=== PATIENT | female | born 1995 | race African-American/Black ===

== ENCOUNTER 2024-09-02 17:20 | Emergency (ER) | payer BC ==
[~2024-09-02] VITALS: Ht 172.7 cm; Wt 66.2 kg
[2024-09-02 17:50] LABS: *BILIRUBIN,URIN NEGATIVE (NEGATIVE); *BLOOD, URINE NEGATIVE (NEGATIVE); *CLARITY,URINE CLEAR (CLEAR); *KETONES,URINE 1+ (NEGATIVE); *PROTEIN,URINE NEGATIVE (NEGATIVE); *UROBILINOGEN,URINE 0.2 E.U./dl (NORMAL); LEUKOCYTE ESTERASE ,URINE NEGATIVE (NEGATIVE); NITRITE, URINE NEGATIVE (NEGATIVE); UGLUCOSE NEGATIVE (NEGATIVE)
[2024-09-02] MEDS ORDERED: CEFTRIAXONE /D5W 50ML IVPB **ER PYXIS IV ONE (17:53)
[2024-09-02 17:54] LABS: *COLOR,URINE LIGHT YELLOW (YELLOW); *URINE HCG, QUAL NEGATIVE (NEGATIVE)
[2024-09-02 18:05] LABS: RBC,URINE NONE SEEN /HPF (0-3)
[2024-09-02 18:06] LABS: BACTERIA,URINE NONE SEEN /HPF (NONE SEEN); SQUAMOUS EPITHELIAL CELL,UR FEW /HPF (NONE SEEN); WBC,URINE 0-3 /HPF (0-3)
[2024-09-02 18:11] LABS: BASOPHILS % (AUTO) 0.1 % (0.0-2.0); EOSINOPHILS % (AUTO) 0.1 % (0.0-7.0); HEMATOCRIT 36.2 % (31.2-41.9); HEMOGLOBIN 11.6 g/dL (10.9-14.3); LYMPHOCYTES # (AUTO) 0.7 K/uL (0.8-4.8); LYMPHOCYTES % (AUTO) 4.2 % (20.5-51.5); MEAN CORPUSCULAR HEMOGLOBIN 25.5 uug (24.7-32.8); MEAN CORPUSCULAR HGB CONC 32 g/dL (32.3-35.6); MEAN CORPUSCULAR VOLUME 79.5 fL (75.5-95.3); MONOCYTES # (AUTO) 0.4 K/uL (0.1-1.30); MONOCYTES % (AUTO) 2.6 % (0.0-11.0); NEUTROPHILS # (AUTO) 15.9 K/uL (1.8-8.9); PLATELET COUNT (AUTO) 258 K/uL (179-408); RED BLOOD CELL COUNT(AUTO) 4.55 MIL/uL (3.63-4.92); RED CELL DISTRIBUTION WIDTH 16.2 % (12.3-17.7); WHITE BLOOD COUNT (AUTO) 17.1 K/uL (3.8-11.8)
[2024-09-02] MEDS: IV NORMAL SALINE 1000 ML BAG IV ONE (18:12)
[2024-09-02] MEDS: CEFTRIAXONE 2 G in IV DEXTROSE 5% 100 ML IV ONE (18:12)
[2024-09-02 18:17] LABS: DIFFERENTIAL COMMENT 1
[2024-09-02 18:20] LABS: CALCIUM 9.3 mg/dL (8.5-10.1); CARBON DIOXIDE 25 mmol/L (21-32); CHLORIDE 100 mmol/L (98-107); GLUCOSE 102 mg/dL (74-106); POTASSIUM 3.9 mmol/L (3.5-5.1); SODIUM SERUM 137 mmol/L (136-145); UREA NITROGEN, BLOOD 7 mg/dL (7-18)
[2024-09-02 18:31] LABS: LACTIC ACID 2.2 mmol/L (0.4-2.0)
[2024-09-02 18:33] LABS: ALANINE AMINOTRANSFERASE 20 U/L (14-59); ALKALINE PHOSPHATASE 60 U/L (50-136); ASPARTATE AMINOTRANSFERASE 13 U/L (15-37); BILIRUBIN,DIRECT 0.2 mg/dL (0.0-0.2); BILIRUBIN,TOTAL 0.7 mg/dL (0.2-1.0); NT-PRO BNP 23 pg/mL (0-125); TOTAL PROTEIN, SERUM 8.4 g/dL (6.4-8.2)
[2024-09-02] MEDS: ACETAMINOPHEN 500 MG TABLET PO ONE (19:15)
[2024-09-02] MEDS ORDERED: ACETAMINOPHEN 500 MG TABLET ONE (19:16)
[2024-09-02] MEDS: ONDANSETRON 4 MG/2 ML VIAL IV ONE (19:30)
[2024-09-02] MEDS ORDERED: HYDROCODONE/APAP 10-325 MG TABLET PO ONE (19:30)
[2024-09-02] MEDS ORDERED: CARISOPRODOL 350 MG TABLET PO ONE (19:30)
[2024-09-02] MEDS ORDERED: ONDANSETRON 4 MG/2 ML VIAL ONE (19:32)
[2024-09-02] MEDS ORDERED: ONDA4TAB11 PO (20:12)
[2024-09-02] MEDS ORDERED: AZIT250T13 PO (20:12)
[2024-09-03 01:13] VITALS: BP 117/81; TEMP 99.8; O2SAT 99
== END 2024-09-02 21:10 | disposition home or self-care (01) ==
LOC: ER 17:23
DX: A04.5 Campylobacter enteritis (principal); E86.0 Dehydration; R10.2 Pelvic and perineal pain; Z20.822 Contact with and (suspected) exposure to COVID-19; Z79.899 Other long term (current) drug therapy
CPT/HCPCS: 36415; 71045; 83605; 84484; 84703; 85025; 85730; 87040; A4606; A4663; A9150; J0696; J2405; J7040